=== PATIENT | male | born 1985 | race Two or more races ===

== ENCOUNTER 2017-01-19 09:47 | Emergency (ER) | payer BC ==
[2017-01-19] MEDS ORDERED: Sodium Chloride 0.9% 10 ML Syringe FLUSH PRN (10:25)
--- NOTE | 2017-01-19 11:10 | CR ---
Chest: Two views of the chest were obtained. Comparison: No previous chest x-ray. Soft tissue density is noted off the left cardiac apex believed to represent slightly prominent epicardial fat pad as an incidental note. Heart size and mediastinum are normal. Lungs are clear with no acute infiltrates. Bony structures are unremarkable. Impression: 1. Incidental finding. Nothing acute is identified on two-view chest x-ray. Diagnostic code #2
--- NOTE | 2017-01-19 11:29 | EDM.PDOC ---
ED HPI GENERAL MEDICAL PROBLEM - General Chief Complaint: Chest Pain Stated Complaint: CHEST PAIN RAPID HEART RATE Time Seen by Provider: 01/19/17 10:12 Source of Information: Reports: Patient History Limitations: Reports: No Limitations - History of Present Illness INITIAL COMMENTS - FREE TEXT/NARRATIVE: The patient presents with chest pain. This has been going on for about 1 week. The pain is in the middle of the chest and it come and goes. It is made worse by deep breathing. It is a sharp pain. He has no shortness of breath with it. He has no fever, chills, cough, congestion or runny nose. He has no abdominal pain, nausea or vomiting. He has no pain or edema in his legs. He has no medical problems. He does not smoke. He says he was at work and he got dizzy and it felt like his heart was racing and it was so fast he could not count it. He has been working out hard for a few weeks. Onset: Gradual Duration: Week(s): (1) Location: Reports: Chest Quality: Reports: Sharp Severity: Moderate Improves with: Reports: None Worsens with: Reports: Breathing Associated Symptoms: Reports: Chest Pain. Denies: Cough, Fever/Chills, Nausea/ Vomiting, Shortness of Breath Chest Pain Score (Numeric/FACES): 6 Past Medical History HEENT History: Reports: Sinusitis Social & Family History - Tobacco Use Smoking Status *Q: Current Some Day Smoker Years of Tobacco use: 6 Packs/Tins Daily: 0.1 Second Hand Smoke Exposure: No - Caffeine Use Caffeine Use: Reports: Coffee - Recreational Drug Use Recreational Drug Use: No ED ROS GENERAL - Review of Systems Review Of Systems: See Below Constitutional: Reports: No Symptoms HEENT: Reports: No Symptoms Respiratory: Reports: No Symptoms Cardiovascular: Reports: Chest Pain, Lightheadedness, Palpitations Endocrine: Reports: No Symptoms GI/Abdominal: Reports: No Symptoms : Reports: No Symptoms Musculoskeletal: Reports: No Symptoms Skin: Reports: No Symptoms ED EXAM, GENERAL - Physical Exam Exam: See Below Exam Limited By: No Limitations General Appearance: Alert, No Apparent Distress Ears: Normal External Exam Nose: Normal Inspection Head: Atraumatic, Normocephalic Neck: Normal Inspection Respiratory/Chest: No Respiratory Distress, Lungs Clear, Normal Breath Sounds Cardiovascular: Regular Rate, Rhythm, No Edema, No Murmur GI/Abdominal: Soft, Non-Tender, No Organomegaly, No Mass Back Exam: Normal Inspection Extremities: Normal Inspection Neurological: Alert, Oriented, No Motor/Sensory Deficits EKG INTERPRETATION EKG Date: 01/19/17 Time: 10:09 Rhythm: NSR Rate (beats/min): 82 [place]: normal P-wave: present QRS: normal ST-T: normal QT: normal Course - Vital Signs Last Recorded V/S: Last Vital Signs Temp 97.8 F 01/19/17 09:50 Pulse 92 01/19/17 09:50 Resp 21 H 01/19/17 09:50 BP 142/82 H 01/19/17 09:50 Pulse Ox 98 01/19/17 09:50 - Orders/Labs/Meds Orders: Active Orders 24 hr Category Date Time Status Cardiac Monitoring [RC] . DIRECTED Care 01/19/17 10:25 Active EKG Documentation Completion [RC] STAT Care 01/19/17 10:25 Active Holter Monitor 24 Hours [RC] .PRN Care 01/19/17 11:23 Ordered Peripheral IV Care [RC] . DIRECTED Care 01/19/17 10:26 Active Sodium Chloride 0.9% [Saline Flush] Med 01/19/17 10:25 Active 10 ml FLUSH ASDIRECTED PRN Peripheral IV Insertion Adult [OM.PC] Stat Oth 01/19/17 10:25 Ordered Medication Orders Sodium Chloride (Saline Flush) 10 ml FLUSH ASDIRECTED PRN PRN Reason: Keep Vein Open Labs: Laboratory Tests 01/19/17 01/19/17 01/19/17 Range/Units 10:30 10:30 10:30 WBC 6.70 (4.23-9.07) K/mm3 RBC 6.09 H (4.63-6.08) M/mm3 Hgb 15.2 (13.7-17.5) gm/L Hct 46.0 (40.1-51.0) % MCV 75.5 L (79.0-92.2) fl MCH 25.0 L (25.7-32.2) pg MCHC 33.0 (32.2-35.5) g/dl RDW Std Deviation 39.6 (35.1-43.9) fL Plt Count 348 H (163-337) K/mm3 MPV 9.2 L (9.4-12.3) fl Neut % (Auto) 64.3 (34.0-67.9) % Lymph % (Auto) 25.8 (21.8-53.1) % [place]y % (Auto) 9.1 (5.3-12.2) % Eos % (Auto) 0.3 L (0.8-7.0) Baso % (Auto) 0.1 (0.1-1.2) % Neut # (Auto) 4.30 (1.78-5.38) K/mm3 Lymph # (Auto) 1.73 (1.32-3.57) K/mm3 Emery # (Auto) 0.61 (0.30-0.82) K/mm3 Eos # (Auto) 0.02 L (0.04-0.54) K/mm3 Baso # (Auto) 0.01 (0.01-0.08) K/mm3 Manual Slide Review Normal smear D-Dimer, Quantitative 0.22 (0.19-0.59) mg/L Sodium 138 (136-145) mEq/L Potassium 4.0 (3.5-5.1) mEq/L Chloride 103 (98-107) mEq/L Carbon Dioxide 26 (21-32) mEq/L Anion Gap 13.0 (5-15) BUN 16 (7-18) mg/dL Creatinine 1.1 (0.7-1.3) mg/dL Est Cr Clr Drug Dosing 92.64 mL/min Estimated GFR (MDRD) > 60 (>60) mL/min BUN/Creatinine Ratio 14.5 (14-18) Glucose 100 (74-106) mg/dL Calcium 9.0 (8.5-10.1) mg/dL Total Bilirubin 0.8 (0.2-1.0) mg/dL AST 22 (15-37) U/L ALT 38 (16-63) U/L Alkaline Phosphatase 97 (46-116) U/L Troponin I < 0.017 (0.00-0.056) ng/mL Total Protein 8.8 H (6.4-8.2) g/dl Albumin 4.3 (3.4-5.0) g/dl Globulin 4.5 gm/dL Albumin/Globulin Ratio 1.0 (1-2) Meds: Medications Generic Name Dose Route Start Last Admin Trade Name Rachel PRN Reason Stop Dose Admin Sodium Chloride 10 ml 01/19/17 10:25 Saline Flush FLUSH ASDIRECTED PRN Keep Vein Open - Re-Assessments/Exams Free Text/Narrative Re-Assessment/Exam: 01/19/17 11:29 I ordered an IV saline lock, EKG, CXR, and labs. His EKG shows a NSR with no acute changes. His CXR looks good. His labs look good. He has a normal D- dimer and troponin. I feel this is pleurisy. I will also get him on a holter monitor to check on his heart rate. He sees a doctor at [place] but he cannot recall his name. Departure - Departure Time of Disposition: 11:35 Disposition: Home, Self-Care 01 Condition: good Clinical Impression: Pleurisy, Palpitations Referrals: Nayeli Lozada NP [Primary Care Provider] - 1 Week Forms: ED Department Discharge Additional Instructions: Wear the holter monitor for 1 day. Take motrin or aleve for the chest pain. Follow up with your provider in 1 week. Pleaser return if you have more pain or shortness of breath. - My Orders Last 24 Hours: My Active Orders 01/19/17 10:25 Cardiac Monitoring [RC] . DIRECTED EKG Documentation Completion [RC] STAT Sodium Chloride 0.9% [Saline Flush] 10 ml FLUSH ASDIRECTED PRN Peripheral IV Insertion Adult [OM.PC] Stat 01/19/17 10:26 Peripheral IV Care [RC] . DIRECTED 01/19/17 11:23 Holter Monitor 24 Hours [RC] .PRN - Assessment/Plan Last 24 Hours: My Active Orders 01/19/17 10:25 Cardiac Monitoring [RC] . DIRECTED EKG Documentation Completion [RC] STAT Sodium Chloride 0.9% [Saline Flush] 10 ml FLUSH ASDIRECTED PRN Peripheral IV Insertion Adult [OM.PC] Stat 01/19/17 10:26 Peripheral IV Care [RC] . DIRECTED 01/19/17 11:23 Holter Monitor 24 Hours [RC] .PRN
[2017-01-19 12:59] VITALS: BP 107/73
== END 2017-01-19 11:57 | disposition home or self-care (01) ==
LOC: JD.ED 09:47
DX: R09.1 Pleurisy (principal); R00.2 Palpitations; F17.210 Nicotine dependence, cigarettes, uncomplicated
CPT/HCPCS: 36415; 71020; 80053; 84484; 85025; 85379; 93005; 93225; 93226; 99285; J7050; 99284

== ENCOUNTER 2017-02-08 15:46 | Emergency (ER) | payer OTHER, BC ==
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
[2017-02-08 17:14] VITALS: BP 127/75
== END 2017-02-08 17:15 | disposition home or self-care (01) ==
LOC: JD.ED 15:46
DX: S63.502A Unspecified sprain of left wrist, initial encounter (principal); S20.219A Contusion of unspecified front wall of thorax, initial encounter; F17.210 Nicotine dependence, cigarettes, uncomplicated; V40.5XXA Car driver injured in collision with pedestrian or animal in traffic accident, initial encounter
CPT/HCPCS: 99282; 99284